=== PATIENT | female | born 1980 | race Hispanic/Latino ===

== ENCOUNTER 2017-01-14 12:11 | Emergency (ER) | payer OTHER, SELFPAY ==
[2017-01-14 12:49] LABS: #Eosinphils 0.1 thou/uL (0.0-0.7); #Lymphocytes 1.1 thou/uL (1.20-3.40); #Monocytes 0.3 thou/uL (0.11-0.59); #Neutrophils 6.2 thou/uL (1.40-6.50); %Lymphocytes 13.7 % (21.0-51.0); %Monocytes 3.9 % (0.0-10.0); Hematocrit 34.2 % (36.0-47.0); Mean Platelet Volume 7.6 fL (7.4-10.4); Red Blood Cell (RBC) Count 3.91 mill/uL (4.20-5.40); White Blood Cell (WBC) Count 7.7 thou/uL (4.8-10.8)
[2017-01-14 12:54] LABS: PTT 30.7 SEC (22.9-36.1); Prothrombin Time 13.9 SEC (12.0-14.7)
[2017-01-14 13:10] LABS: ALT (SGPT) 10 U/L (8-55); AST (SGOT) 10 U/L (5-34); Alkaline Phosphatase 61 U/L (40-150); Anion Gap 10 mmol/L (10-20); BUN (Urea Nitrogen) 10 mg/dL (7.0-18.7); Bilirubin, Total 0.6 mg/dL (0.2-1.2); CK (CPK) 25 U/L (29-168); Calc. Creatinine Clearance 0 mL/min (70-130); Calcium 8.9 mg/dL (7.8-10.44); Carbon Dioxide 22 mmol/L (22-29); Chloride 104 mmol/L (98-107); Estimated GFR-MDRD Greater than 90; Globulin 3.4 g/dL (2.4-3.5); Lipase 17 U/L (8-78); Protein, Total 6.8 g/dL (6.0-8.3)
[2017-01-14 13:15] LABS: Troponin I Less than 0.010 ng/mL (< 0.028)
[2017-01-14 15:00] LABS: Bilirubin Negative (Negative); Blood, Urine Negative (Negative); Glucose, Urine (Dipstick) Negative (Negative); Ketone, Urine Trace mg/dL (Negative); Nitrite Negative (Negative); Protein, Urine (Dipstick) Negative (Neg-Trace)
[2017-01-14 15:03] LABS: Bacteria/HPF Rare-Few HPF (None Seen); Hyaline Casts/LPF 0-3 HYALINE CAST LPF (0-3 Hyaline); RBC/HPF 0-3 HPF (0-3); Squamous Epithelial 0-3 HPF (0-3); WBC/HPF 0-3 HPF (0-3)
== END 2017-01-14 15:08 | disposition home or self-care (01) ==
LOC: ERS 12:11
DX: O99.89 Other specified diseases and conditions complicating pregnancy, childbirth and the puerperium (principal); R07.89 Other chest pain
CPT/HCPCS: 36415; 80053; 81003; 81015; 82550; 82553; 83690; 84484; 85025; 85610; 85730; 93005

== ENCOUNTER 2017-02-24 09:10 | Day surgery (SDC) | payer OTHER ==
[2017-02-24 09:44] VITALS: BMI 34.7
--- NOTE | 2017-02-24 10:21 | PDOC.LDHP ---
Labor and Delivery H&P Chief complaint: abdominal pain, other (anxiety, stress) HPI: Patient is a 36 yo at 25.1w by LMP/11w sono who presents for cc of abdominal pain and anxiety. She states that approximately 20 minutes prior to arrival she was in the car with her discussing her daughter's upcoming birthday constitution party and they started arguing. She got very stressed out and started crying and having lower abdominal pain. She denies any trauma, physical or verbal abuse, and states she feels safe at home. She has a lot of family support. She denies any vaginal bleeding but does sometimes have dysuria and a little discomfort when wiping. She has not noticed significant increase or change in vaginal discharge. She is feeling baby move regularly. Current gestational age (weeks): 25 Due date: 06/08/17 Dating criteria: last menstrual period, first trimester ultrasound (11.5w sono consistent with LMP) Grav: 2 Para: 1 OB History Details: H/o myomectomy for fibroids (2013), primary C/S (2015), A1GDM last ( has not yet done GTT this ), AMA Current complications: none Abnormal US findings: No Past Medical History: None (apart from A1GDM last ) Current medications: pre- vitamins Previous surgical history: low tranverse CS, other (Myomectomy (2013)) Social history: other - Physical Exam Vital signs reviewed and normal: yes General: NAD, resting (appears slightly anxious, tearful) Heart: RRR Lungs: CTAB Abdomen: NTTP Extremeties: no edema FHT: variability present [place] contractions every: none - OB Labs Blood type: A RH: positive Antibody Screen: negative HIV: negative RPR: negative HEPSAg: negative 1 hour GCT: unknown 3 hour GTT: unknown GBS: unknown Urine drug screen: not done Rubella: immune - Assessment 36 yo at 25.1 by LMP/11.5w sono here lower abdominal pain and anxiety attack - Plan -: 1. Lower abdominal pain - Pain has now resolved - No h/o trauma - FHT reassuring - Thin white discharge noted on exam and intermittent dysuria, will send UA and VP3 - UCx if indicated 2. Anxiety - Patient reports this is 2nd "attack" this - Denies any concern for abuse at home - Reports stress increasing relating to her daughter's birthday constitution party - Discussed that most anxiety mediations are contraindicated in - Recommend deep breathing exercises and discussing possibility of antidepressants with Dr. Thapa if symptoms persist/worsen 3. sIUP - 25w as above - FHT reassuring - Routine f/u 4. H/o myomectomy and C/S - Plan for repeat C/S at term 5. H/o GDM - Encouraged to be sure to follow-up with Dr. Thapa within next 2-3 weeks to complete OGTT Plan discussed with Dr. Christensen who is in agreement <Angelina Mckeon - Last Filed: 02/24/17 10:31> <Jessy Christensen - Last Filed: 02/24/17 13:00> Allergies/Adverse Reactions: Allergies Allergy/AdvReac Type Severity Reaction Status Date / Time No Known Allergies Allergy Unverified 02/24/17 09:43 Attending Addendum - Attending Addendum I personally evaluated the patient and discussed the management with Dr. Mckeon. I agree with the History, Examination, Assessment and Plan documented above with any addition or exceptions noted below. UA with positive Nitrites, given Rx for Macrobid. VP3 negative. <Jessy Christensen - Last Filed: 02/24/17 13:00>
[2017-02-24] MEDS ORDERED: FLU VACC QS2017-18 36 mo. & older 0.5 ML SYRINGE IM ONE (10:30)
[2017-02-24 10:40] LABS: Bilirubin Small (Negative); Blood, Urine Negative (Negative); Glucose, Urine (Dipstick) Negative (Negative); Ketone, Urine 40 mg/dL (Negative); Nitrite Positive (Negative); Protein, Urine (Dipstick) Trace mg/dL (Neg-Trace)
[2017-02-24 10:43] LABS: Bacteria/HPF None Seen HPF (None Seen); Hyaline Casts/LPF 7-10 HYALINE CAST LPF (0-3 Hyaline); RBC/HPF 0-3 HPF (0-3)
[2017-02-24 10:54] LABS: Renal Epithelial None Seen HPF (0-3); Transitional Epithelial NONE SEEN HPF (0-3)
== END 2017-02-24 11:54 | disposition home or self-care (01) ==
LOC: L&D/OP 09:10
PROVIDERS: ATTEND Family Medicine
DX: O99.89 Other specified diseases and conditions complicating pregnancy, childbirth and the puerperium (principal); R10.9 Unspecified abdominal pain; O99.342 Other mental disorders complicating pregnancy, second trimester; F41.9 Anxiety disorder, unspecified; Z3A.25 25 weeks gestation of pregnancy; Z79.899 Other long term (current) drug therapy; Z98.890 Other specified postprocedural states; Z86.32 Personal history of gestational diabetes
CPT/HCPCS: 81003; 81015; 87086; 87480; 87510; 87660

== ENCOUNTER 2017-03-31 13:40 | Day surgery (SDC) | payer OTHER ==
[2017-03-31] MEDS ORDERED: Ondansetron ODT 4 MG TAB SL PRN (14:13)
[2017-03-31 14:33] VITALS: TEMP 97.7
[2017-03-31 14:35] VITALS: BMI 36.7
--- NOTE | 2017-03-31 15:20 | PDOC.LDHP ---
Labor and Delivery H&P Chief complaint: other (dizziness/nausea) HPI: 36 y/o at 30w0d, patient of Dr. Thapa, presents after nausea and dizziness following glucola test this afternoon. Denies VB, LOF, ctx, or decreased FM. ROS neg for HEENT, cv, pulm, gi, gu, neuro, psych, skin, musculoskeletal or constitutional symptoms other than mentioned above. OB History Details: 1 prior term LTCS Current complications: none Past Medical History: None Current medications: pre- vitamins Previous surgical history: low tranverse CS Allergies/Adverse Reactions: Allergies Allergy/AdvReac Type Severity Reaction Status Date / Time No Known Allergies Allergy Unverified 02/24/17 09:43 Social history: none - Physical Exam Vital signs reviewed and normal: yes General: NAD, resting Lungs: nonlabored breathing Abdomen: gravid Extremeties: no edema FHT: category 1 (120s, mod variability, + accels, no decels) [place] contractions every: None - Assessment 36 y/o at 30w0d with n/v, dizziness following glucola. Received Zofran ODT 4mg and symptoms resolved. Tolerating PO fluids. status reassuring with reactive NST. - Plan -: D/c home with precautions. Advised to keep all appointments.
[2017-03-31] MEDS ORDERED: FLU VACC QS2017-18 36 mo. & older 0.5 ML SYRINGE IM ONE (17:30)
== END 2017-03-31 15:55 | disposition home or self-care (01) ==
LOC: L&D/OP 13:40
PROVIDERS: ATTEND Family Medicine
DX: O99.89 Other specified diseases and conditions complicating pregnancy, childbirth and the puerperium (principal); R42 Dizziness and giddiness; R11.0 Nausea; Z79.899 Other long term (current) drug therapy; Z98.890 Other specified postprocedural states; Z3A.30 30 weeks gestation of pregnancy
CPT/HCPCS: 99281; Q0162